=== PATIENT | male | born 1995 | race Caucasian/White ===

== ENCOUNTER 2025-01-28 07:02 | Emergency (ER) | payer OTHER ==
[2025-01-28] MEDS: Orphenadrine 60 MG/2 ML Inj IM ONE (07:23)
[2025-01-28] MEDS: Ketorolac 30 MG/ML SDV IM ONE (07:23)
[2025-01-28] MEDS: Lidocaine 5% 700 MG Patch TRDERM ONE (07:28)
[2025-01-28] MEDS: Ondansetron 4 MG Tab.DIS PO ONE (07:29)
== END 2025-01-28 07:46 | disposition home or self-care (01) ==
LOC: LB.ED 07:02
DX: M54.50 Low back pain, unspecified (principal); Z88.2 Allergy status to sulfonamides
CPT/HCPCS: 96372; 99283; A9270-GY; J1885; J2360; Q0162